=== PATIENT | male | born 1955 | race Caucasian/White ===

== ENCOUNTER → 2018-05-02 | Outpatient (CLI) | payer OTHER ==
[~2018-05-02] MED LIST: BENICAR HCT 401 EAC1 PO; BENICAR40 MG PO; FIBER500 MG; GLUCOPHAGE500 MG PO; GLUCOSAMINE &1 EAC1; LANTUS SUBQ; NOVOLOG100 UNIT/1 SUBQ; OXYCONTIN10 M1 PO; VITAMIN D35000 UNI1 PO; WELCHOL 625 MG625 M1
== END ==
LOC: RAD 10:37
DX: M47.23 Other spondylosis with radiculopathy, cervicothoracic region (principal); M48.02 Spinal stenosis, cervical region; M25.78 Osteophyte, vertebrae